=== PATIENT | female | born 1935 | race Caucasian/White ===

== ENCOUNTER 2018-10-30 11:53 | Inpatient (IN) | payer OTHER ==
[~2018-10-30] VITALS: Ht 167.6 cm; Wt 48.5 kg
--- NOTE | 2018-10-30 12:14 | NUR ---
PT CRUZ FROM [facility] FOR PSYCH EVAL FOR POSSIBLE S/I, ALSO C/O NAUSEA AND ABD PAIN; PT AAOX4, -SOB, NAD NOTED, VSS, PENDING MD KHAN
[2018-10-30] MEDS ORDERED: BRIM5DRO3 OP (12:26)
[2018-10-30] MEDS ORDERED: ATOR20TA PO (12:26)
[2018-10-30] MEDS ORDERED: SENN-175 PO (12:26)
[2018-10-30] MEDS ORDERED: DORZ10DR11 OP (12:26)
[2018-10-30] MEDS ORDERED: CLOB15CR5 TP (12:26)
[2018-10-30] MEDS ORDERED: KETO5DRO83 OP (12:26)
[2018-10-30] MEDS ORDERED: DOCU-141 PO (12:26)
[2018-10-30] MEDS ORDERED: LATA2.5D7 OP (12:26)
[2018-10-30] MEDS ORDERED: DIFL5DRO OP (12:26)
[2018-10-30] MEDS ORDERED: ZOLP10TA2 PO (12:26)
[2018-10-30] MEDS ORDERED: METO-357 PO (12:34)
[2018-10-30] MEDS ORDERED: ACET-868 PO (12:34)
[2018-10-30] MEDS ORDERED: FEXO-65 PO (12:34)
[2018-10-30] MEDS ORDERED: FLUO60SO3 TP (12:34)
[2018-10-30] MEDS ORDERED: HYDR-3026 PO (12:34)
[2018-10-30] MEDS ORDERED: ERGO50CA PO (12:34)
[2018-10-30] MEDS ORDERED: MOXI3DRO RIGHTEYE (12:34)
[2018-10-30 12:35] LABS: BASOPHILS # (AUTO) 0.1 /CMM (0.0-0.2); BASOPHILS % (AUTO) 0.9 % (0.0-2.0); EOSINOPHILS % (AUTO) 0.9 % (0.0-6.0); HEMATOCRIT 44 % (33-45); HEMOGLOBIN 14.9 g/dL (11.5-14.8); LYMPHOCYTES # (AUTO) 1.6 /CMM (0.8-4.8); LYMPHOCYTES % (AUTO) 21.7 % (20.0-44.0); MEAN CORPUSCULAR HGB CONC 34 g/dl (31.0-36.0); MEAN CORPUSCULAR VOLUME 92 fL (82-100); MONOCYTES # (AUTO) 0.8 /CMM (0.1-1.30); MONOCYTES % (AUTO) 10.5 % (2.0-12.0); NEUTROPHILS # (AUTO) 4.8 /CMM (1.8-8.9); PLATELET COUNT (AUTO) 324 /CMM (150-450); RED BLOOD CELL COUNT(AUTO) 4.81 MIL/uL (4.0-5.2); WHITE BLOOD COUNT (AUTO) 7.3 K/uL (4.3-11.0)
[2018-10-30 12:52] LABS: APPEARANCE,URINE CLEAR (CLEAR); BILIRUBIN,URINE NEGATIVE (NEGATIVE); BLOOD, URINE 2+ Ery/uL (NEGATIVE); COLOR,URINE YELLOW (YELLOW); KETONES,URINE TRACE (NEGATIVE); LEUKOCYTE ESTERASE ,URINE TRACE (NEGATIVE); NITRITE, URINE NEGATIVE (NEGATIVE); PROTEIN,URINE NEGATIVE (NEGATIVE); UGLUCOSE NEGATIVE (NEGATIVE); UROBILINOGEN,URINE 0.2 EU/dL (0.2)
[2018-10-30 12:59] LABS: CALCIUM, SERUM 9.6 mg/dL (8.5-10.1); CARBON DIOXIDE 24 mmol/L (21-32); CHLORIDE 102 mmol/L (98-107); CREATININE 1.1 mg/dL (0.6-1.3); GLUCOSE 96 mg/dL (74-106); POTASSIUM 4.4 mmol/L (3.5-5.1); SODIUM SERUM 138 mmol/L (136-145); UREA NITROGEN, BLOOD 20 mg/dL (7-18)
[2018-10-30 13:02] LABS: BACTERIA,URINE 1+ /HPF (None Seen)
[2018-10-30 13:15] LABS: ACETAMINOPHEN 0 ug/ml (10-30); ALANINE AMINOTRANSFERASE 23 U/L (12-78); ALCOHOL, BLOOD < 3 mg/dL (0-0); ALKALINE PHOSPHATASE 91 U/L (46-116); ASPARTATE AMINOTRANSFERASE 34 U/L (15-37); BILIRUBIN,DIRECT 0.1 mg/dL (0.0-0.2); BILIRUBIN,TOTAL 0.9 mg/dL (0.2-1.0); SALICYLATE 0.9 mg/dL (2.8-20.0); TOTAL PROTEIN, SERUM 8.1 g/dL (6.4-8.2)
[2018-10-30] MEDS ORDERED: ONDANSETRON HCL/PF 4 MG/2 ML VIAL IVP ONE (13:30)
[2018-10-30] MEDS ORDERED: ONDANSETRON HCL/PF 4 MG/2 ML VIAL ONE (13:34)
--- NOTE | 2018-10-30 16:24 | NUR ---
NELSON INDUSTRIAL RELATIONS COUNSELOR @2607 SHE STATED SHE WAS ON HER WAY.
[2018-10-30] MEDS ORDERED: LORAZEPAM 1 MG TABLET ONE (17:32)
[2018-10-30] MEDS ORDERED: LORAZEPAM 1 MG TABLET PO ONE (17:32)
--- NOTE | 2018-10-30 18:00 | NUR ---
PER CELESTINA, PT'S INSURANCE IS NOT CONTRACTED WITH [facility], POSSIBLE TRANSFER TO A [facility],.
--- NOTE | 2018-10-30 19:57 | NUR ---
PER CELESTINA PT CAN STAY IN [place].
--- NOTE | 2018-10-30 20:18 | NUR ---
REPORT GIVEN TO GPS RN FOR EMBER
[2018-10-30 21:00] VITALS: BP 122/74
--- NOTE | 2018-10-30 21:00 | NUR ---
[employer]PS HOTEL SERVICES SALES REPRESENTATIVE NOTES: ADMITTED AN 83YO FEMALE FROM [facility] ON A 5150 HOLD FOR DANGER TO SELF AND GRAVE DISABILITY. PER HOLD PATIENT WAS ANXIOUS, DEPRESSED, ON THE VERGE OF TEARS, STATED "I AM FEELING VERY BADLY TODAY AND I AM SO DEPRESSED, I HAVE NOT BEEN SLEEPING AND WHEN I ACTUALLY DO FALL ASLEEP, I WAKE UP WITH WETNESS IN MY BED". PATIENT HAS EXPRESSED THESE FEELINGS OF DEPRESSION TO STAFF AT [facility]. PATIENT WILL BE UNDER THE CARE OF DR. HOLM AND DR. THORNTON. UPON FACE TO FACE EVALUATION PATIENT PRESENTS ALERT AND ORIENTED X3, APPEARS REALLY SAD, DEPRESSED, SHE EXPRESSED HER FRUSTRATIONS ABOUT BEING HERE IN THE LOCKED UNIT. PER PATIENT SHE HAS BEEN OFF CELEXA AND MIRTAZAPINE MEDICATIONS FOR ABOUT A MONTH ALREADY AND THAT'S WHEN SHE STARTED FEELING VERY BAD. REALITY ORIENTATION DONE. PATIENT ORIENTED TO UNIT, STAFF, DOCTORS, CARE PLAN, AND UNIT POLICIES. DR. THORNTON MADE AWARE OF THE ADMISSION. SKIN AND BODY ASSESSMENT DONE. PICTURES TAKEN AND PLACED IN THE CHART.BELONGINGS AND CONTRABAND CHECKED. Q15 MIN CHECKS INITIATED. CARE PLAN STARTED. WILL MONITOR PATIENT FOR MOOD,SAFETY AND BEHAVIOR.
[2018-10-30] MEDS ORDERED: ACETAMINOPHEN 325 MG TABLET PO PRN (21:30)
[2018-10-30] MEDS ORDERED: MAGNESIUM HYDROXIDE 30 ML UDC PO PRN (21:30)
[2018-10-30] MEDS: TEMAZEPAM 7.5 MG CAPSULE PO PRN (21:55)
[2018-10-30] MEDS ORDERED: SENNOSIDES 8.6 MG TABLET PO PRN (23:00)
[2018-10-31] MEDS: LORAZEPAM 0.5 MG TABLET PO PRN ×2 (07:11→19:43)
[2018-10-31 07:35] LABS: CHOLESTEROL 119 mg/dL (<200); HDL CHOLESTEROL 49 mg/dL (40-60); LDL 61 mg/dL (0-99); TRIGLYCERIDES 64 mg/dL (30-150)
[2018-10-31 07:42] LABS: CREATININE 1.1 mg/dL (0.6-1.3)
[2018-10-31 08:00] VITALS: BP 151/95
[2018-10-31] MEDS ORDERED: FLUOCINONIDE TP SCH (09:00)
--- NOTE | 2018-10-31 09:23 | NUR ---
UR NOTE: JESÚS faxed clinical information to Froy, watch case polisher with [place] [phone] for authorization.
[2018-10-31] MEDS: DOCUSATE SODIUM 100 MG CAPSULE PO SCH ×2 (09:25→16:28)
--- NOTE | 2018-10-31 09:35 | NUR ---
GPS RN NOTE: PATIENT APPEARED CALM, STATED LESS ANXIOUS, FEELS BETTER, LESS PAIN ON HER LEFT CHEST, TROPONIN 0.017, EKG RESULTS, UZ=725/92 P=63, METOPROLOL 50MG SCHEDULED GIVEN, NOTIFIED CHAUNCEY VASQUEZ TO MONITOR
[2018-10-31] MEDS ORDERED: hydrOXYzine PAMOATE 25 MG CAPSULE PO PRN (11:30)
[2018-10-31] MEDS: CIPROFLOXACIN HCL 0.3% 5 ML BOTTLE RIGHTEYE SCH ×3 (13:00→21:09)
[2018-10-31] MEDS ORDERED: KETOROLAC EYE 0.5% 3 ML BOTTLE EACHEYE SCH (13:00)
[2018-10-31] MEDS ORDERED: MOXIFLOXACIN OPTH 3 ML BOTTLE RIGHTEYE SCH (13:00)
--- NOTE | 2018-10-31 13:16 | NUR ---
JESÚS contacted [facility] Address: [address] [place] [address] and spoke with Belle, executive administrator who stated pt is able to return once stable on medications.
--- NOTE | 2018-10-31 13:29 | NUR ---
JESÚS contacted pts son Kameron [phone] and left a voicemail for callback.
[2018-10-31] MEDS: BRIMONIDINE TARTRATE OPHT SOLN 5 ML BOTTLE EACHEYE SCH ×2 (13:41→21:10)
--- NOTE | 2018-10-31 14:34 | NUR ---
INITIAL DISCHARGE PLAN: Patient wishes to return to her assisted living. JESÚS contacted [facility] Address: [address] [place] [address] and spoke with Belle, import/export administrator who stated pt is able to return once stable on medications. JESÚS will help form a safe and proper discharge plan in collaboration with .
--- NOTE | 2018-10-31 14:37 | NUR ---
UR NOTE: JESÚS faxed H&P and medication list to Froy, lining caser with [place] [phone] for authorization.
[2018-10-31 16:00] VITALS: BP 150/83
[2018-10-31] MEDS: TIMOLOL MAL/DORZOLAM HCL OPHTH 10 ML BOTTLE EACHEYE SCH (16:28)
--- NOTE | 2018-10-31 17:59 | NUR ---
RN-CO: FAXED CONSENT 2X TO PHARMACY
[2018-10-31] MEDS: SERTRALINE HCL 50 MG TABLET PO SCH (18:33)
--- NOTE | 2018-10-31 19:30 | NUR ---
GPS RN NOTE PATIENT OF BEING ANXIOUS AND LEFT CHEST PRESSURE PAIN, PER PATIENT IT HAPPENED BEFORE BUT NOT THIS BAD. PATIENT APPEARED TO BE NERVOUS AND PANICKED. ATIVAN 0.5MG PO AND TYLENOL 1000MG PO GIVEN, REASSURED THE PATIENT, ASSISTED THE PATIENT TO THE RESTROOM TO URINATE. NOTIFIED DR. THORNTON WITH ORDER OF STAT EKG AND TROPONIN NOTED AND CARRIED OUT. NOTIFIED RT AND LABORATORY. WILL CONTINUE TO MONITOR Addendum: 10/31/18 at 2020 by SUSHMA LEROY II, RN ADDENDUM: PATIENT V/S BP-192/87 P-66 R-16 T-97.8
--- NOTE | 2018-10-31 19:40 | NUR ---
GPS RN NOTE: NOTIFIED RESPONSIBLE REPUBLICAN OF THE PATIENT CONDITION.
[2018-10-31] MEDS: ACETAMINOPHEN ES 500 MG TABLET PO PRN (19:44)
--- NOTE | 2018-10-31 19:50 | NUR ---
GPS RN NOTE: PATIENT APPEARED, CALM, RELAXED, ALERT AND ORIENTED X 3-4, NO ALOC NOTED, NO SOB, NO ACUTE DISTRESS NOTED, WILL CONTINUE TO MONITOR
[2018-10-31 19:57] VITALS: BP 192/87
[2018-10-31] MEDS: LATANOPROST EYE DROP 0.005% 2.5 ML BOTTLE EACHEYE SCH (21:12)
[2018-10-31] MEDS: MIRTAZAPINE 15 MG TABLET PO SCH (21:13)
[2018-10-31] MEDS: ATORVASTATIN 10 MG TABLET PO SCH (21:13)
[2018-10-31] MEDS: METOPROLOL SUCCINATE 50 MG TAB.SR.24H PO SCH (21:15)
--- NOTE | 2018-10-31 21:35 | NUR ---
GPS RN NOTE: PATIENT APPEARED CALMER, STATED THAT SHE FEELS LESS ANXIOUS, BETTER, HER CHEST PAIN IS LESS PAINFUL THAN EARLIER. BP 180/92 P63. SCHEDULED METOPROLOL 50MG GIVEN. RECEIVED TROPONIN RESULT 0.[address] THORNTON[address] WITH NNO GIVEN. WILL CONTINUE TO MONITOR
--- NOTE | 2018-10-31 22:30 | NUR ---
GPS RN NOTE: PATIENT STABLE, CALM, QUIET, IB=563/74, P=76, NO SIGNIFICANT CHANGE OF CONDITION NOTED, NO AGITATION. WILL CONTINUE TO MONITOR
[2018-11-01] MEDS: BRIMONIDINE TARTRATE OPHT SOLN 5 ML BOTTLE EACHEYE SCH ×3 (06:26→20:24)
[2018-11-01 08:00] VITALS: BP 102/56
[2018-11-01] MEDS: SERTRALINE HCL 50 MG TABLET PO SCH (08:49)
[2018-11-01] MEDS: LORAZEPAM 0.5 MG TABLET PO PRN (08:49)
[2018-11-01] MEDS: DOCUSATE SODIUM 100 MG CAPSULE PO SCH ×2 (08:49→17:32)
[2018-11-01] MEDS: TIMOLOL MAL/DORZOLAM HCL OPHTH 10 ML BOTTLE EACHEYE SCH ×2 (08:49→17:33)
[2018-11-01] MEDS: CIPROFLOXACIN HCL 0.3% 5 ML BOTTLE RIGHTEYE SCH ×4 (08:49→20:24)
[2018-11-01] MEDS: LISINOPRIL (10MG) 10 MG TABLET PO SCH (09:52)
[2018-11-01] MEDS: PANTOPRAZOLE 40 MG TABLET.DR PO SCH (09:52)
[2018-11-01] MEDS: MAG HYDROX/AL HYDROX/SIMETH 30 ML UDC PO PRN (10:00)
[2018-11-01] MEDS ORDERED: ERGOCALCIFEROL (VITAMIN D 2) 50,000 UNIT CAPSULE PO SCH (10:00)
--- NOTE | 2018-11-01 10:01 | NUR ---
DENA NOTE PT IS COMPLAINING OF PAIN IN THE STOMACH TOWARD THE UPPER CHEST BP-161/70 BP MEDICATION AND MALLOX GIVEN, DR ORDERED PROTIX,
--- NOTE | 2018-11-01 12:06 | NUR ---
NURSE NOTE PT DENIED ANY PAIN OR DISCOMFORT AT THIS TIME, BP-128/70 PT EATING LUNCH, NO DISTRESS NOTED.
[2018-11-01] MEDS: KETOROLAC EYE 0.5% 3 ML BOTTLE EACHEYE SCH ×3 (13:35→20:49)
[2018-11-01 16:00] VITALS: BP 106/65
[2018-11-01 20:00] VITALS: BP 124/77
--- NOTE | 2018-11-01 20:46 | NUR ---
KETOROLAC EYE DROP NOT FOUND INSIDE PATIENT'S CASSETTE, NOT ADMINISTERED, PHARMACY NOTIFIED, MEDICATION WAS DELIVERED AROUND 1800 TODAY, NURSE PREMA SAID IT'S INSIDE PATIENT'S CASSETTE, BUT UNABLE TO FIND. TAFFY PULLER AWARE.
[2018-11-01] MEDS: LATANOPROST EYE DROP 0.005% 2.5 ML BOTTLE EACHEYE SCH (21:08)
[2018-11-01] MEDS: ATORVASTATIN 10 MG TABLET PO SCH (21:10)
[2018-11-01] MEDS: MIRTAZAPINE 15 MG TABLET PO SCH (21:10)
--- NOTE | 2018-11-01 21:10 | NUR ---
MIRTAZAPINE 30 MG TAB PO RFUSED, PATIENT STATED, " I AM OFF THAT MEDICATION, i AM NOT TAKING IT."
[2018-11-01] MEDS: METOPROLOL SUCCINATE 50 MG TAB.SR.24H PO SCH (21:12)
[2018-11-02] MEDS: BRIMONIDINE TARTRATE OPHT SOLN 5 ML BOTTLE EACHEYE SCH ×3 (05:00→20:25)
[2018-11-02 08:00] VITALS: BP 130/75
[2018-11-02] MEDS: PANTOPRAZOLE 40 MG TABLET.DR PO SCH (08:51)
[2018-11-02] MEDS: LISINOPRIL (10MG) 10 MG TABLET PO SCH (08:51)
[2018-11-02] MEDS: SERTRALINE HCL 50 MG TABLET PO SCH (08:51)
[2018-11-02] MEDS: DOCUSATE SODIUM 100 MG CAPSULE PO SCH ×2 (08:51→17:21)
[2018-11-02] MEDS: TIMOLOL MAL/DORZOLAM HCL OPHTH 10 ML BOTTLE EACHEYE SCH ×2 (08:52→17:21)
[2018-11-02] MEDS: CIPROFLOXACIN HCL 0.3% 5 ML BOTTLE RIGHTEYE SCH ×4 (08:52→20:25)
--- NOTE | 2018-11-02 09:20 | NUR ---
UR NOTE: JESÚS faxed updated clinical information to Froy, foster care case manager with [employer] [phone] for authorization.
--- NOTE | 2018-11-02 09:21 | NUR ---
SW received a voicemail from pts daughter in law Jannette [phone], SW called back and left a voicemail informing her pt will be discharged tomorrow 11/02/18 back to [facility].
[2018-11-02] MEDS: LORAZEPAM 0.5 MG TABLET PO PRN (09:22)
[2018-11-02] MEDS: MAG HYDROX/AL HYDROX/SIMETH 30 ML UDC PO PRN (09:22)
[2018-11-02] MEDS: KETOROLAC EYE 0.5% 3 ML BOTTLE EACHEYE SCH ×4 (09:26→20:25)
--- NOTE | 2018-11-02 09:27 | NUR ---
JESÚS contacted [facility] Address: [address] [place] [address] and spoke with Maricel, security system administrator and informed her pt will be discharged on Monday11/03/18, Maricel agreed and requested discharge paperwork be faxed to [phone].
--- NOTE | 2018-11-02 13:13 | NUR ---
RN NOTE: PATIENT WAS COMPLAINING OF CHEST PAIN AFTER BREAKFAST. I EXPLAINED TO HER THAT HER LAB RESULTS WERE NEGATIVE. EDUCATION SESSION COMPLETE WITH PATIENT ABOUT AVOIDING LAYING DOWN FLAT AFTER MEALS. SHE ALSO STATED FEELINGS OF ANXIOUSNESS. PRN MAALOX AND ATIVAN WAS GIVEN. RE-ASSESSED PATIENT. SUCCESSFUL OUTCOME. NO COMPLAINTS OF CHEST PAIN NOTED.
--- NOTE | 2018-11-02 14:56 | NUR ---
JESÚS faxed discharge clinicals to [facility] Address: [address], [place] [address] .
--- NOTE | 2018-11-02 15:02 | NUR ---
DISCHARGE NOTE: Pt will be discharging via private vehicle at 9:00am to [facility] Address: [address] [place] [address] . Pts friend Shama [phone] will pick pt up and transport home. Pts mood is euthymic with congruent affect. Pt denied visual/auditory hallucinations and denied suicidal/homicidal ideation. Pt has a follow up appointment with Psychiatrist: Dr. Menezes Address: [address] [place] [address] on November 15, 2018 at 2:30pm. Pt will also follow up with Vehicle Dynamics Engineer: Dr. Marcela Haynes Address: [address] [place] [address] . The multidisciplinary exit care form was done, printed, signed, and given to the patient.
[2018-11-02 16:00] VITALS: BP 91/64
[2018-11-02] MEDS ORDERED: IOHEXOL-350 100 ML VIAL IV ONE ×2 (17:43→18:05)
[2018-11-02 19:57] VITALS: BP 145/72
--- NOTE | 2018-11-02 19:59 | NUR ---
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 He said that he will take a look at it. Also informed MD that I need an order if midline can be discontinued after result is okay.
[2018-11-02] MEDS: TEMAZEPAM 7.5 MG CAPSULE PO PRN (20:26)
[2018-11-02] MEDS: LATANOPROST EYE DROP 0.005% 2.5 ML BOTTLE EACHEYE SCH (21:35)
[2018-11-02] MEDS: ATORVASTATIN 10 MG TABLET PO SCH (21:36)
[2018-11-02] MEDS: MIRTAZAPINE 15 MG TABLET PO SCH (21:36)
[2018-11-02] MEDS: METOPROLOL SUCCINATE 50 MG TAB.SR.24H PO SCH (21:37)
[2018-11-03] MEDS: BRIMONIDINE TARTRATE OPHT SOLN 5 ML BOTTLE EACHEYE SCH (05:00)
--- NOTE | 2018-11-03 05:49 | NUR ---
MIDLINE LEFT ARM REMOVED AND DISCONTINUED, PRESSURE DRESSING APPLIED.
[2018-11-03 08:00] VITALS: BP 157/87
[2018-11-03 08:13] VITALS: BP 157/87
[2018-11-03] MEDS: SERTRALINE HCL 50 MG TABLET PO SCH (08:13)
[2018-11-03] MEDS: CIPROFLOXACIN HCL 0.3% 5 ML BOTTLE RIGHTEYE SCH (08:13)
[2018-11-03] MEDS: PANTOPRAZOLE 40 MG TABLET.DR PO SCH (08:13)
[2018-11-03] MEDS: TIMOLOL MAL/DORZOLAM HCL OPHTH 10 ML BOTTLE EACHEYE SCH (08:13)
[2018-11-03] MEDS: LISINOPRIL (10MG) 10 MG TABLET PO SCH (08:13)
[2018-11-03] MEDS: DOCUSATE SODIUM 100 MG CAPSULE PO SCH (08:13)
[2018-11-03] MEDS: KETOROLAC EYE 0.5% 3 ML BOTTLE EACHEYE SCH (08:14)
[2018-11-03] MEDS: ACETAMINOPHEN ES 500 MG TABLET PO PRN (08:19)
--- NOTE | 2018-11-03 08:29 | NUR ---
DR. HOLM GAVE AN ORDER TO D/C TO [facility] AND TO FOLLOW UP WITH PSYCH AND MEDICAL DOCTORS. CALLED THE [facility] AND SPOKE TIFFANIE ARMENTA THE SAFETY MANAGER AND SAID THEY ARE ACCEPTING HER TODAY. THE SON CASTRO MENDEZ MADE AWARE OF THE DISCHARGE.
--- NOTE | 2018-11-03 09:25 | NUR ---
GPS DISCHARGE NOTE: PT DISCHARGE TO [facility] AT [address] [place] [address] .PICKED UP BY PT FRIEND CARLOS EDUARDO. PT DISCHARGE IN STABLE CONDITION, VSS , PT DENIES SUICIDAL HOMICIDAL IDEATIONS, DENIES VISUAL AND AUDITORY HALLUCINATIONS. DENIES FEELING DEPRESSED , NO PAIN PER PT. EXIT CARE DONE, PRINTED, SIGN GIVEN TO PT. MEDICATIONS PRESCRIPTION EXPLAIN GIVEN TO PT. DR MARTINEZ NOTIFIED OF DISCHARGE PER OK TO DISCHARGE A PT,PT STABLE FOR DISCHARGE,WILL FAX MEDICATIONS PRESCRIPTION TO FACILITY LATER WHEN DR COME TO UNIT. PT SON INFORMED OF DISCHARGE, ALL BELONGINGS AND VALUABLES RETURNED TO PT.
--- NOTE | 2018-11-03 10:04 | NUR ---
DR. MARTINEZ CAME IN THE UNIT AND MADE AWARE OF TH DISCHARGE AND WROTE A PRESCRIPTIONS AND RECONCILED MEDS AND [facility]. SPOKE TO KATHI FROM THE FACILITY AND CONFIRMED THAT HE RECEIVED IT.
== END 2018-11-03 09:25 | DRG 885 ==
LOC: ER 11:53 → UNDOADMIN 19:04 → GPS 19:04
PROVIDERS: ADMIT Psychiatry & Neurology Psychiatry; ATTEND Internal Medicine
PROC: 05HB33Z Insertion of Infusion Device into Right Basilic Vein, Percutaneous Approach (ICD-10-PCS; principal; 2018-11-02)
DX: F33.2 Major depressive disorder, recurrent severe without psychotic features (principal); R45.851 Suicidal ideations; F29 Unspecified psychosis not due to a substance or known physiological condition; I10 Essential (primary) hypertension; F41.9 Anxiety disorder, unspecified; M19.90 Unspecified osteoarthritis, unspecified site; Z73.6 Limitation of activities due to disability; E78.5 Hyperlipidemia, unspecified; F10.20 Alcohol dependence, uncomplicated; Z88.2 Allergy status to sulfonamides; H40.9 Unspecified glaucoma; Z79.899 Other long term (current) drug therapy; R10.13 Epigastric pain; G40.909 Epilepsy, unspecified, not intractable, without status epilepticus
CPT/HCPCS: 36415; 75574; 76700-TC; 80048-TC; 80061-TC; 80076-TC; 80305; 81000-TC; 82565-TC; 84484-TC; 85025-TC; G0480; J2405; Q9967

== ENCOUNTER 2018-11-28 14:24 | Emergency (ER) | payer OTHER ==
[~2018-11-28] VITALS: Ht 167.6 cm; Wt 49.9 kg
[~2018-11-28 14:24] MED LIST: ACET-868 PO; ATOR20TA PO; BRIM5DRO3 OP; CLOB15CR5 TP; DIFL5DRO OP; DOCU-141 PO; DORZ10DR11 OP; ERGO50CA PO; FEXO-65 PO; FLUO60SO3 TP; HYDR-500 PO; KETO5DRO83 OP; LATA2.5D7 EACHEYE; METO-357 PO; MOXI3DRO RIGHTEYE; SENN-175 PO; ZOLP10TA2 PO
--- NOTE | 2018-11-28 14:40 | NUR ---
ADOLFO ALMAGUER FROM [facility] PRIOR TO PSYCH EVAL FOR SI. PT AAOX4, VSS. PT CALM & COOPERATIVE. PT FEELING DEPRESSED & THOUGHT OF HARMING HERSELF BUT NO PLAN @ THIS TIME, ALSO C/O NAUSEA. DENIES CP, SOB, DIZZINESS, DIARRHEA @ THIS TIME. SEEN & EVAL'D BY DR. BO. TYREL @ BS & WILL CONT TO MONITOR.
[2018-11-28] MEDS ORDERED: ONDANSETRON 4 MG TAB.RAPDIS SL ONE (15:00)
[2018-11-28] MEDS ORDERED: ONDANSETRON 4 MG TAB.RAPDIS ONE (15:00)
--- NOTE | 2018-11-28 15:05 | NUR ---
MEDICATED ORDERED PER ERMD ORDER. PT KAYLENE WELL.
[2018-11-28 15:09] LABS: BASOPHILS # (AUTO) 0.1 /CMM (0.0-0.2); BASOPHILS % (AUTO) 0.8 % (0.0-2.0); EOSINOPHILS % (AUTO) 0.5 % (0.0-6.0); HEMATOCRIT 39 % (33-45); HEMOGLOBIN 13.5 g/dL (11.5-14.8); LYMPHOCYTES % (AUTO) 14.5 % (20.0-44.0); MEAN CORPUSCULAR HGB CONC 34 g/dl (31.0-36.0); MEAN CORPUSCULAR VOLUME 90 fL (82-100); MONOCYTES # (AUTO) 0.6 /CMM (0.1-1.30); MONOCYTES % (AUTO) 9.4 % (2.0-12.0); NEUTROPHILS # (AUTO) 5.1 /CMM (1.8-8.9); NEUTROPHILS % (AUTO) 74.8 % (43.0-81.0); PLATELET COUNT (AUTO) 338 /CMM (150-450); WHITE BLOOD COUNT (AUTO) 6.8 K/uL (4.3-11.0)
[2018-11-28 15:25] LABS: CALCIUM, SERUM 9.3 mg/dL (8.5-10.1); CARBON DIOXIDE 26 mmol/L (21-32); CHLORIDE 108 mmol/L (98-107); GLUCOSE 102 mg/dL (74-106); POTASSIUM 3.5 mmol/L (3.5-5.1); SODIUM SERUM 143 mmol/L (136-145); UREA NITROGEN, BLOOD 18 mg/dL (7-18)
[2018-11-28 15:36] LABS: SALICYLATE < 2.8 mg/dL (2.8-20.0)
[2018-11-28 15:37] LABS: ALCOHOL, BLOOD < 3 mg/dL (0-0)
[2018-11-28 15:51] LABS: APPEARANCE,URINE Clear (CLEAR); BILIRUBIN,URINE Negative (NEGATIVE); BLOOD, URINE Trace-lysed Ery/uL (NEGATIVE); COLOR,URINE Yellow (YELLOW); KETONES,URINE Negative (NEGATIVE); LEUKOCYTE ESTERASE ,URINE Trace (NEGATIVE); NITRITE, URINE Positive (NEGATIVE); PROTEIN,URINE Negative (NEGATIVE); UGLUCOSE Negative (NEGATIVE); UROBILINOGEN,URINE 0.2 EU/dL (0.2)
[2018-11-28 16:28] LABS: RBC,URINE 2-3/HPF /HPF (0-2)
[2018-11-28 16:29] LABS: BACTERIA,URINE Many /HPF (None Seen); MUCUS,URINE Few /LPF (None Seen); SQUAMOUS EPITHELIAL CELL,UR Rare /HPF (None Seen)
[2018-11-28] MEDS ORDERED: MIRT15TA7 PO (16:57)
[2018-11-28] MEDS ORDERED: ZOLP5TAB8 PO (16:57)
[2018-11-28] MEDS ORDERED: RIVA10TA PO (16:57)
[2018-11-28] MEDS ORDERED: ONDA4TAB5 PO (16:57)
[2018-11-28] MEDS ORDERED: ACET-73 PO (16:57)
[2018-11-28] MEDS ORDERED: CHOL100044 PO (16:57)
[2018-11-28] MEDS ORDERED: [UNRECOGNIZED DRUG - CODE] EACHEYE (16:57)
[2018-11-28] MEDS ORDERED: SERT100T PO (16:57)
[2018-11-28] MEDS ORDERED: PANT40TA4 PO (16:57)
[2018-11-28] MEDS ORDERED: LISI10TA5 PO (16:58)
--- NOTE | 2018-11-28 17:30 | NUR ---
JOSEFINA GAYLE 6200 TRIP #[id number]
--- NOTE | 2018-11-28 19:04 | NUR ---
UPDATED ETA 1736
--- NOTE | 2018-11-28 19:44 | NUR ---
UPDATED ETA 1954
[2018-11-28] MEDS ORDERED: LISINOPRIL (10MG) 10 MG TABLET PO STA (20:17)
--- NOTE | 2018-11-28 20:52 | NUR ---
PT MEDICATED FOR HI BP PER ERMD ORDER, PT KAYLENE WELL. DENIES CP, SOB, DIZZINESS, N/V, WEAKNESS @ THIS TIME.
--- NOTE | 2018-11-28 22:25 | NUR ---
DR. BO SPEAKING WITH ROSINA FROM [facility]. PT IS MEDICALLY CLEAR AND STABLE FOR TRANSFER. FACILITY AWARE OF PT RETURNING.
--- NOTE | 2018-11-28 22:30 | NUR ---
YOGI GAYLE 4373 TRIP #[id number]
[2018-11-28 23:11] VITALS: BP 190/100
== END 2018-11-28 23:12 | disposition home or self-care (01) ==
LOC: EDUNIT# 14:24 → ER 14:32
DX: F32.9 Major depressive disorder, single episode, unspecified (principal); R45.851 Suicidal ideations; I10 Essential (primary) hypertension; I25.10 Atherosclerotic heart disease of native coronary artery without angina pectoris; Z95.818 Presence of other cardiac implants and grafts; Z98.890 Other specified postprocedural states; Z88.2 Allergy status to sulfonamides; Z79.899 Other long term (current) drug therapy
CPT/HCPCS: 36415; 80048; 80307; 80329; 81001; 84484; 85025; 87077; 87081; 87086; 87186; 93005; 99284; G0480; Q0162; 81000-TC

== ENCOUNTER 2018-12-10 16:50 | Inpatient (IN) | payer OTHER ==
[~2018-12-10 16:50] MED LIST changes: +ACET-73 PO; -ACET-868 PO; -BRIM5DRO3 OP; +CHOL100044 PO; -CLOB15CR5 TP; -DIFL5DRO OP; -DORZ10DR11 OP; -FEXO-65 PO; -FLUO60SO3 TP; -HYDR-500 PO; -KETO5DRO83 OP; +LISI10TA5 PO; -METO-357 PO; +MIRT15TA7 PO; -MOXI3DRO RIGHTEYE; +ONDA4TAB5 PO; +PANT40TA4 PO; +RIVA10TA PO; +SERT100T PO; -ZOLP10TA2 PO; +ZOLP5TAB8 PO; +[UNRECOGNIZED DRUG - CODE] EACHEYE
[2018-12-10] MEDS ORDERED: ALPRAZOLAM 0.5 MG TABLET ONE (17:00)
[2018-12-10] MEDS ORDERED: ALPRAZOLAM 0.5 MG TABLET PO ONE (17:00)
[2018-12-10] MEDS ORDERED: DORZ10DR11 OP (17:26)
[2018-12-10] MEDS ORDERED: METO-357 PO (17:26)
[2018-12-10] MEDS ORDERED: CLOB15OI3 TP (17:26)
[2018-12-10] MEDS ORDERED: BRIM5DRO3 EACHEYE (17:26)
[2018-12-10] MEDS ORDERED: MAG HYDROX/AL HYDROX/SIMETH 30 ML UDC PO PRN (20:30)
[2018-12-10] MEDS ORDERED: BLOOD SUGAR DIAGNOSTIC 1 EACH STRIP IN ONE (20:30)
[2018-12-10] MEDS ORDERED: MAGNESIUM HYDROXIDE 30 ML UDC PO PRN (20:30)
[2018-12-10] MEDS: ACETAMINOPHEN 325 MG TABLET PO PRN (21:28)
[2018-12-10] MEDS: TEMAZEPAM 7.5 MG CAPSULE PO PRN (22:37)
[2018-12-10] MEDS ORDERED: CLONIDINE HCL 0.1 MG TABLET PO PRN (23:00)
[2018-12-10] MEDS ORDERED: ACETAMINOPHEN 325 MG TABLET PO PRN (23:00)
[2018-12-11] MEDS: LORAZEPAM 0.5 MG TABLET PO PRN (06:36)
[2018-12-11] MEDS ORDERED: ONDANSETRON 4 MG TAB.RAPDIS PO PRN (08:00)
[2018-12-11] MEDS: METOPROLOL SUCCINATE 50 MG TAB.SR.24H PO SCH (08:32)
[2018-12-11] MEDS: LISINOPRIL (10MG) 10 MG TABLET PO SCH (08:33)
[2018-12-11] MEDS: PANTOPRAZOLE 40 MG TABLET.DR PO SCH (08:33)
[2018-12-11] MEDS: DOCUSATE SODIUM 100 MG CAPSULE PO SCH ×2 (08:33→16:59)
[2018-12-11] MEDS: TIMOLOL MAL/DORZOLAM HCL OPHTH 10 ML BOTTLE EACHEYE SCH ×2 (08:38→16:59)
[2018-12-11] MEDS: BRIMONIDINE TARTRATE OPHT SOLN 5 ML BOTTLE EACHEYE SCH ×2 (08:38→16:59)
[2018-12-11] MEDS: CLOBETASOL 0.05% OINT 30 GM TUBE TP SCH ×2 (08:39→16:59)
[2018-12-11] MEDS: ATORVASTATIN 10 MG TABLET PO SCH (21:18)
[2018-12-11] MEDS: MIRTAZAPINE 15 MG TABLET PO SCH (21:18)
[2018-12-11] MEDS: TEMAZEPAM 7.5 MG CAPSULE PO PRN (22:13)
[2018-12-12] MEDS: PANTOPRAZOLE 40 MG TABLET.DR PO SCH (09:14)
[2018-12-12] MEDS: SERTRALINE HCL 50 MG TABLET PO SCH (09:14)
[2018-12-12] MEDS: DOCUSATE SODIUM 100 MG CAPSULE PO SCH ×2 (09:14→16:10)
[2018-12-12] MEDS: METOPROLOL SUCCINATE 50 MG TAB.SR.24H PO SCH (09:15)
[2018-12-12] MEDS: LISINOPRIL (10MG) 10 MG TABLET PO SCH (09:15)
[2018-12-12] MEDS: BRIMONIDINE TARTRATE OPHT SOLN 5 ML BOTTLE EACHEYE SCH ×2 (10:36→16:10)
[2018-12-12] MEDS: CLOBETASOL 0.05% OINT 30 GM TUBE TP SCH ×2 (10:37→16:11)
[2018-12-12] MEDS: TIMOLOL MAL/DORZOLAM HCL OPHTH 10 ML BOTTLE EACHEYE SCH ×2 (10:37→16:10)
[2018-12-12] MEDS: LORAZEPAM 0.5 MG TABLET PO PRN (11:20)
[2018-12-12] MEDS: ACETAMINOPHEN 325 MG TABLET PO PRN (15:52)
[2018-12-12] MEDS: ATORVASTATIN 10 MG TABLET PO SCH (21:15)
[2018-12-12] MEDS: MIRTAZAPINE 15 MG TABLET PO SCH (21:15)
[2018-12-12] MEDS: TEMAZEPAM 7.5 MG CAPSULE PO PRN (21:16)
[2018-12-13] MEDS: PANTOPRAZOLE 40 MG TABLET.DR PO SCH (08:26)
[2018-12-13] MEDS: DOCUSATE SODIUM 100 MG CAPSULE PO SCH ×2 (08:27→16:21)
[2018-12-13] MEDS: SERTRALINE HCL 50 MG TABLET PO SCH (08:27)
[2018-12-13] MEDS: METOPROLOL SUCCINATE 50 MG TAB.SR.24H PO SCH (08:27)
[2018-12-13] MEDS: TIMOLOL MAL/DORZOLAM HCL OPHTH 10 ML BOTTLE EACHEYE SCH ×2 (08:28→16:21)
[2018-12-13] MEDS: BRIMONIDINE TARTRATE OPHT SOLN 5 ML BOTTLE EACHEYE SCH ×2 (08:28→16:21)
[2018-12-13] MEDS: CLOBETASOL 0.05% OINT 30 GM TUBE TP SCH ×2 (08:28→16:22)
[2018-12-13] MEDS: LISINOPRIL (10MG) 10 MG TABLET PO SCH (08:38)
[2018-12-13] MEDS: LORAZEPAM 0.5 MG TABLET PO PRN ×2 (10:14→17:03)
[2018-12-13] MEDS: ACETAMINOPHEN 325 MG TABLET PO PRN (17:04)
[2018-12-13] MEDS: ATORVASTATIN 10 MG TABLET PO SCH (21:21)
[2018-12-13] MEDS: MIRTAZAPINE 15 MG TABLET PO SCH (21:21)
[2018-12-14] MEDS: SERTRALINE HCL 50 MG TABLET PO SCH (09:46)
[2018-12-14] MEDS: LISINOPRIL (10MG) 10 MG TABLET PO SCH (09:47)
[2018-12-14] MEDS: CLOBETASOL 0.05% OINT 30 GM TUBE TP SCH (09:47)
[2018-12-14] MEDS: PANTOPRAZOLE 40 MG TABLET.DR PO SCH (09:47)
[2018-12-14] MEDS: METOPROLOL SUCCINATE 50 MG TAB.SR.24H PO SCH (09:47)
[2018-12-14] MEDS: DOCUSATE SODIUM 100 MG CAPSULE PO SCH (09:47)
[2018-12-14] MEDS: TIMOLOL MAL/DORZOLAM HCL OPHTH 10 ML BOTTLE EACHEYE SCH (09:48)
[2018-12-14] MEDS: BRIMONIDINE TARTRATE OPHT SOLN 5 ML BOTTLE EACHEYE SCH (09:49)
[2018-12-14] MEDS: ACETAMINOPHEN 325 MG TABLET PO PRN (10:47)
[2018-12-14] MEDS: LORAZEPAM 0.5 MG TABLET PO PRN (14:59)
== END 2018-12-14 16:40 | DRG 885 ==
DX: F33.2 Major depressive disorder, recurrent severe without psychotic features (principal); E43 Unspecified severe protein-calorie malnutrition; N17.0 Acute kidney failure with tubular necrosis; Z68.1 Body mass index [BMI] 19.9 or less, adult; R45.851 Suicidal ideations; F41.9 Anxiety disorder, unspecified; Z88.2 Allergy status to sulfonamides; I10 Essential (primary) hypertension; I25.10 Atherosclerotic heart disease of native coronary artery without angina pectoris; G40.909 Epilepsy, unspecified, not intractable, without status epilepticus; K21.9 Gastro-esophageal reflux disease without esophagitis; H40.9 Unspecified glaucoma; F29 Unspecified psychosis not due to a substance or known physiological condition